=== PATIENT | male | born 1975 | race Caucasian/White ===

== ENCOUNTER 2016-12-26 02:34 | Emergency (ER) | payer OTHER | END 2016-12-26 03:57 | disposition home or self-care (01) | LOC: ER 02:34 | DX: L03.113 Cellulitis of right upper limb (principal) ==

== ENCOUNTER 2017-02-24 23:13 | Emergency (ER) | payer OTHER | END 2017-02-25 01:51 | disposition home or self-care (01) | LOC: ER 23:13 | DX: N34.2 Other urethritis (principal); J02.9 Acute pharyngitis, unspecified; I10 Essential (primary) hypertension | CPT/HCPCS: 87651; 96372; J0696 ==